=== PATIENT | male | born 1970 | race Hispanic/Latino ===

== ENCOUNTER 2016-11-23 17:55 | Emergency (ER) ==
[2016-11-23] MEDS ORDERED: CLINDAMYCIN 600 MG/NS 50 ML IV ONE (18:21)
[2016-11-23] MEDS ORDERED: TORADOL IV ONE (18:21)
[2016-11-23] MEDS ORDERED: NS 1,000 ML IV ONE (18:21)
--- NOTE | 2016-11-23 18:56 | PROVIDER DOCUMENTATION ---
HPI-EENT General - General Source: patient, family - History of Present Illness-EENT General EENT Location: reports: mouth, throat, facial, dental Quality of Pain: reports: aching Severity: reports: severe Onset/Duration: reports: other (see hpi) Timing: reports: still present Prearrival Treatment: Initiated prescription meds Associated Symptoms: reports: tooth pain Similar Symptoms Previously?: Yes Recently seen or treated by another doctor?: No <Lalo Stone - Last Filed: 11/23/16 21:02> <Lexii Mehta - Last Filed: 11/23/16 21:46> - General Chief Complaint: Toothache Stated Complaint: TOOTHACHE Time Seen by Provider: 11/23/16 18:04 Allergies/Adverse Reactions: Patient Allergies Allergy/AdvReac Type Severity Reaction Status Date / Time No Known Allergies Allergy Verified 11/23/16 18:15 Home Medications: Glipizide [Glucotrol] 10 mg PO DAILY 06/04/15 Metformin [Glucophage] 1,000 mg PO BID 06/04/15 LISINOpril [Prinivil] 5 mg PO DAILY 11/23/16 Simvastatin [Zocor] 20 mg PO QHS 11/23/16 Terbinafine [Lamisil] 250 mg PO DAILY 11/23/16 - History of Present Illness-EENT General Nature of Presenting Problem: 46 y/o male with Hx of HTN, HLD, and DM presents accompanied by his son with right-sided toothache and facial swelling ongoing for 3 days. Per history given by patient's son, he has had similar symptoms about 3 months ago due to a dental infection, but today's symptoms are much worse. His son states the patient has been "taking pain pills he had from [place]" to control the pain , but has now run out of them. The patient has been using a plastic water bottle today to catch his saliva due to constant drooling, and has difficulty opening his jaw. The patient's aching pain begins at the right upper molar, and radiates to his right cheek. He feels SOB, but denies any chest pain, fever, or abdominal pain. He has no history of smoking, EtOH, or illicit drug use. ( Lalo Stone) Review of Systems - Adult - REVIEW OF SYSTEMS - ADULT Constitutional: reports: chills, fever. denies: fatique, night sweats Eyes: reports: no symptoms reported. denies: discharge, dry eyes Ears, Nose, Mouth & Throat: reports: see HPI, mouth/dental pain, mouth swelling . denies: ear discharge, ear pain Cardiovascular: reports: no symptoms reported. denies: chest pain, edema Respiratory: reports: shortness of breath. denies: chronic cough, cough Gastrointestinal: reports: no symptoms reported. denies: abdominal pain, hematemesis Genitourinary: reports: no symptoms reported. denies: dysuria, discharge Musculoskeletal: reports: no symptoms reported. denies: bone pain, back pain Integumentary: reports: no symptoms reported. denies: hives, hair loss Neurological: reports: no symptoms reported. denies: ataxia, dizziness/vertigo Psychiatric: reports: no symptoms reported. denies: anxiety, anti-depressant use Endocrine: reports: no symptoms reported Hematologic/Lymphatic: reports: no symptoms reported Allergic/Immunologic: reports: no symptoms reported All Other Systems: Reviewed and Negative <Lalo Stone - Last Filed: 11/23/16 21:02> Past History - Adult - PAST MEDICAL HISTORY-ADULT Review of Records: reports: Old Records Reviewed, Nursing Assessment Review, Medications Reviewed, Social history reviewed & non-contributory. Major Childhood Illnesses: reports: denies history Cardiovascular: reports: hyperlipidemia Respiratory: reports: denies history Gastrointestinal: reports: denies history Obstetrical/Gynecological: reports: denies history Genitourinary: reports: denies history Musculoskeletal: reports: denies history Neurological: reports: denies history Endocrine/Immune: reports: Diabetes Other Conditions: reports: denies history - IMMUNIZATION STATUS Childhood Immunizations: UTD Flu Vaccine: See Nurse Assessment - FAMILY HISTORY Family History: reviewed, not pertinent <Lalo Stone - Last Filed: 11/23/16 21:02> Physical Exam- EENT - Physical Exam EENT Initial Vital Signs Reviewed: Yes General Appearance: appears well, alert, no apparent distress Eye Exam: bilateral eye: normal inspection, PERRL, EOMI Eyes,Nose,Lips,Neck: 1 - erythema and swelling Nasal Exam: normal inspection Throat Exam: pharynx normal, dental tenderness, mandibular swelling, other (pt is having difficulty protruding his tongue) Neck: other (swelling and erythema to the R lateral neck) Respiratory: chest non-tender, lungs clear, normal breath sounds, no pleuratic chest pain, no respiratory distress, no accessory muscle use. negative: respiratory distress, decreased breath sounds, accessory muscle use, crackles, rales, rhonchi, stridor, wheezing Cardiovascular: normal peripheral pulses, regular rate, rhythm, no edema, no gallop, no JVD, no murmur. negative: bradycardia, tachycardia Abdominal Exam: normal bowel sounds, non tender, soft, no organomegaly, no pulsatile mass Lymphatic: no adenopathy Back Exam: normal inspection, no CVA tenderness, no vertebral tenderness Extremity: normal range of motion, non-tender, normal gait, normal inspection, no pedal edema, no calf tenderness, normal capillary refill, pelvis stable Integumentary: normal color, normal turgor, warm/dry Neurologic: instructor flying II-XII nml as tested, no motor/sensory deficits Psych/Mental Status: AL, normal mood/affect, normal thought content, normal thought process, oriented x 3 <Lalo Stone - Last Filed: 11/23/16 21:02> Progress - REASSESSMENT Reassessment #1 Time Reassessed: 19:38 Status: improving Reassessment Comment: Erythema has now resolved; Pain is improved; Pt able to protrude tongue now - CHANGE OF SHIFT REPORT (ED Provider) Report Given and Care Transferred to:: [facility] Time of Transfer: 21:02 Items Pending: CT/MRI Results Tentative Impression of Patient: Stable <Lalo Stone - Last Filed: 11/23/16 21:02> - CT/MRI 1 CT Study: Neck (Expanded and eroded right upper molar root cavity with inflammatory changes extending into the soft tissues of the face ont he right. Adjacent right maxillary sinusitis. Cervical adenopathy, most porminent in the right submandibular region (Maria)) CT Results: see note <Lexii Mehta - Last Filed: 11/23/16 21:46> - PLAN OF CARE/RESULTS Progress/Plan/Lab Results: Discussed results and plan of care with patient. Patient agrees with plan and verbalizes understanding. Vital Signs Temp Pulse Resp BP Pulse Ox 11/23/16 18:00 100.3 F H 93 H 20 158/94 99 No Known Allergies Allergy (Verified 11/23/16 18:15) Glipizide [Glucotrol] 10 mg PO DAILY 06/04/15 Metformin [Glucophage] 1,000 mg PO BID 06/04/15 LISINOpril [Prinivil] 5 mg PO DAILY 11/23/16 Simvastatin [Zocor] 20 mg PO QHS 11/23/16 Terbinafine [Lamisil] 250 mg PO DAILY 11/23/16 Laboratory 11/23/16 11/23/16 11/23/16 18:40 18:40 18:40 WBC 13.17 H RBC 4.65 L Hgb 13.9 L Hct 40.2 L MCV 86.5 MCH 29.9 MCHC 34.6 RDW Std Deviation 11.9 Plt Count 202 MPV 11.4 H Immature Gran % (Auto) 0.2 Neut % (Auto) 81.5 H Lymph % (Auto) 9.9 L [place] % (Auto) 8.1 Eos % (Auto) 0.1 Baso % (Auto) 0.2 Immature Gran # (Auto) 0.02 Neut # (Auto) 10.75 H Lymph # (Auto) 1.30 [place] # (Auto) 1.07 H Eos # (Auto) 0.01 Baso # (Auto) 0.02 PT 11.1 INR 1.05 PTT (Actin FS) 31.6 Sodium 136 Potassium 3.4 L Chloride 97 L Carbon Dioxide 23 L Anion Gap 16 BUN 14 Creatinine 0.8 Estimated GFR/1.73 m2 > 60 BUN/Creatinine Ratio 18 Glucose 125 H Calculated Osmolality 274 Calcium 9.3 Total Bilirubin 0.57 AST 21 ALT 37 Alkaline Phosphatase 75 Total Protein 7.8 Albumin 4.0 Globulin 3.8 Albumin/Globulin Ratio 1.1 Orders Category Date Time Status Saline Loc NOW Care 11/23/16 18:20 Active NECK W/CONTRAST [CT] Stat Exams 11/23/16 18:20 Taken BLOOD CULTURE [BLDCUL] Stat Lab 11/23/16 18:43 Results CBC WITH ELECTRONIC DIFF [HEME] Stat Lab 11/23/16 18:40 Completed COMPREHENSIVE METABOLIC PANEL [CHEM] Stat Lab 11/23/16 18:40 Completed PROTIME WITH INR [COAG] Stat Lab 11/23/16 18:40 Completed PTT [COAG] Stat Lab 11/23/16 18:40 Completed 0.9% Sodium Chloride Inj [Ns] 1,000 ml Med 11/23/16 18:21 Discontinued IV 999 mls/hr Clindamycin 600 mg/Ns 50 ml Med 11/23/16 18:21 Discontinued IV NOW Ketorolac [Toradol] Med 11/23/16 18:21 Discontinued 30 mg IV NOW ONE Laboratory Tests 11/23/16 11/23/16 11/23/16 18:40 18:40 18:40 WBC 13.17 H RBC 4.65 L Hgb 13.9 L Hct 40.2 L MCV 86.5 MCH 29.9 MCHC 34.6 RDW Std Deviation 11.9 Plt Count 202 MPV 11.4 H Immature Gran % (Auto) 0.2 Neut % (Auto) 81.5 H Lymph % (Auto) 9.9 L [place] % (Auto) 8.1 Eos % (Auto) 0.1 Baso % (Auto) 0.2 Immature Gran # (Auto) 0.02 Neut # (Auto) 10.75 H Lymph # (Auto) 1.30 [place] # (Auto) 1.07 H Eos # (Auto) 0.01 Baso # (Auto) 0.02 PT 11.1 INR 1.05 PTT (Actin FS) 31.6 Sodium 136 Potassium 3.4 L Chloride 97 L Carbon Dioxide 23 L Anion Gap 16 BUN 14 Creatinine 0.8 Estimated GFR/1.73 m2 > 60 BUN/Creatinine Ratio 18 Glucose 125 H Calculated Osmolality 274 Calcium 9.3 Total Bilirubin 0.57 AST 21 ALT 37 Alkaline Phosphatase 75 Total Protein 7.8 Albumin 4.0 Globulin 3.8 Albumin/Globulin Ratio 1.1 (Lexii Mehta) Departure <Lalo Stone - Last Filed: 11/23/16 21:02> - Departure Time of Disposition Order: 21:39 Certified Medical Emergency: Emergent <Lexii Mehta - Last Filed: 11/23/16 21:46> - Departure DIAGNOSIS: Dental abscess Disposition: HOME 01 Condition: Stable Additional Instructions: Follow up with primary care physician Follow up with a dentist OSBALDO Take medications as directed Return to ED for any concerns or worsening of symptoms ED Follow Up Instructions: You have been treated by a care provider in the Emergency Department. These instructions are being provided to you so you can have an understanding of how to care for yourself upon discharge. Upon discharge from the Emergency Department, you are responsible for making arrangements for follow-up care by a physician of your choice. Take all prescribed medications as directed. Return to the Emergency Department immediately for any new or worsening symptoms. You may call the Physician Referral phone number at [phone] to obtain a list of Physicians who are taking new patients. Prescriptions: Amoxicillin 500 mg PO BID #14 tablet Tramadol [Ultram] 50 mg PO Q8HR #12 tablet Referrals: None,PCP [Primary Care Provider] - Attestation - Physician/ Mid-level Attestation Patient care was provided by Mid-level provider (LICENSE CLERK/PA):: Yes Mid-level provider:: Lalo Stone Mid-level documentation review:: The Mid-level provider documentation, treatment plan and medical decision making was reviewed by the physician who agrees with all treatment and medical decision making by the MLP. <Lalo Stone - Last Filed: 11/23/16 21:02> - Physician/ Mid-level Attestation Patient care was provided by Mid-level provider (LICENSE CLERK/PA):: Yes Mid-level provider:: Lexii Mehta Mid-level documentation review:: The Mid-level provider documentation, treatment plan and medical decision making was reviewed by the physician who agrees with all treatment and medical decision making by the MLP. <Lexii Mehta - Last Filed: 11/23/16 21:46> Physician Attestation
[2016-11-23 19:01] LABS: MANUAL DIFF NEEDED? NO
[2016-11-23 19:09] LABS: BASO% 0.2 % (0.0-0.8); EOS# 0.01 X1000 (0.0-0.7); EOS% 0.1 % (0.0-10.0); HEMATOCRIT 40.2 % (42.0-52.0); HEMOGLOBIN 13.9 g/dL (14.0-18.0); IMM GRAN# 0.02 X1000 (0.0-0.04); IMM GRAN% 0.2 % (0.0-0.5); LYMPH% 9.9 % (20.5-51.1); MCH 29.9 PG (27-31); MCHC 34.6 g/dL (33-37); MCV 86.5 FL (81-99); MONO# 1.07 X1000 (0.11-0.59); MONO% 8.1 % (1.7-9.3); MPV 11.4 FL (7.4-10.4); NEUT% 81.5 % (42.2-75.2); PLT 202 X1000 (130-400); RBC 4.65 XMIL (4.7-6.1)
[2016-11-23 19:15] LABS: INR 1.05; PROTIME 11.1 Seconds (9.2-11.7); PTT 31.6 Seconds (22.0-36.0)
[2016-11-23 19:27] LABS: AGAP 16; ALKALINE PHOSPHATASE 75 U/L (32-122); BUN 14 mg/dL (8-22); CALCIUM 9.3 mg/dL (8.8-10.2); CHLORIDE 97 mmol/L (98-107); COSMO 274; GOT 21 U/L (10-34); GPT 37 U/L (10-44); POTASSIUM 3.4 mmol/L (3.5-5.1); SODIUM 136 mmol/L (136-145); TCO2 23 mmol/L (25-35); TOTAL BILIRUBIN 0.57 mg/dL (0.20-1.00); TOTAL PROTEIN 7.8 g/dL (6.3-8.3)
[2016-11-23 22:08] VITALS: BP 136/91
--- NOTE | 2016-11-24 09:55 | Diag Imaging Result Document ---
PROCEDURE NAME: NECK W/CONTRAST - 11/23/2016 CT NECK WITH CONTRAST: Exam performed with intravenous contrast. A dose-reduction protocol was used. No comparison exam. FINDINGS: There is a destructive process in the right maxilla around upper molar root. This may relate to periodontal abscess. There is mucosal thickening and fluid in the right maxillary sinus; it is possible that the maxillary lesion communicates with the inferior right maxillary sinus. There is inflammation at the right lower face, compatible with cellulitis. There is submandibular and high and low cervical adenopathy on the right. There are some borderline submandibular lymph nodes on the left. There are nonspecific small cervical lymph nodes on the left. IMPRESSION: 1. Destructive process around the root of maxillary molar on the right. This may represent periodontal abscess and may communicate with the nearby inferior right maxillary sinus. There is right maxillary sinusitis which is likely secondary. There is right lower facial cellulitis. 2. Submandibular and cervical adenopathy on the right. Borderline submandibular lymph nodes and nonspecific small cervical lymph nodes on the left. The on-call radiologist provided preliminary results at 8:57 p.m. on 11/23/2016.
== END 2016-11-23 22:07 | disposition home or self-care (01) ==
LOC: ED 17:55
DX: K04.7 Periapical abscess without sinus (principal); J32.0 Chronic maxillary sinusitis; R59.0 Localized enlarged lymph nodes; K08.89 Other specified disorders of teeth and supporting structures; R22.0 Localized swelling, mass and lump, head; R51 Headache; R06.02 Shortness of breath; R50.9 Fever, unspecified; L53.9 Erythematous condition, unspecified; R22.1 Localized swelling, mass and lump, neck; I10 Essential (primary) hypertension; E78.5 Hyperlipidemia, unspecified; E11.9 Type 2 diabetes mellitus without complications; Z79.899 Other long term (current) drug therapy
CPT/HCPCS: 36415; 70491; 80053; 85025; 85610; 85730; 87040; 96365; 96375; J1885; J7030; Q9967; S0077